=== PATIENT | female | born 1980 | race Caucasian/White ===

== ENCOUNTER 2020-04-05 17:36 | Emergency (ER) | payer SELFPAY ==
[2020-04-05 17:57] VITALS: TEMP 97.8
--- NOTE | 2020-04-05 18:12 | RAD ---
EXAM DESCRIPTION: Tibia/Fibula,Left CLINICAL HISTORY: prox tib pain after fall 2 days ago COMPARISON: None FINDINGS: Two x-ray views of the left tibia and fibula were submitted. There is no acute fracture or dislocation. Bone mineralization is within normal limits. There is no radiopaque foreign body material. IMPRESSION: No acute fracture or dislocation. Electronically signed by: John Crenshaw MD 04/05/2020 6:10 PM [facility]
--- NOTE | 2020-04-05 18:19 | ED.PDOC ---
History of Present Illness - General Chief Complaint: Lower Extremity Injury Stated Complaint: left leg swelling after fall Time Seen by Provider: 04/05/20 17:49 Source: patient Exam Limitations: no limitations - History of Present Illness Initial Comments: The patient is a 39-year-old female presented emergency room secondary to left lower leg pain. Apparently the patient hit her hurst on a trailer in the middle of the night 2 nights ago. She had a large hematoma over the proximal hurst that has since tracked down. As is expected with the tracking fluid she is having some discomfort in the areas to which the fluid is tracking to and some swelling. She appears to be neurovascularly intact. Range of motion and muscle strength are preserved. No evidence of gross deformity. No other significant injuries. She has a mild abrasion over the point of impact without any evidence of infection. Timing/Duration: other - 48 hours Severity: mild Improving Factors: immobilization Worsening Factors: movement Associated Symptoms: denies symptoms Allergies/Adverse Reactions: Allergies NO KNOWN ALLERGY Allergy (Verified 04/05/20 17:59) Review of Systems - Review of Systems Constitutional: States: no symptoms reported EENTM: States: no symptoms reported Respiratory: States: no symptoms reported Cardiology: States: no symptoms reported Gastrointestinal/Abdominal: States: no symptoms reported Genitourinary: States: no symptoms reported Musculoskeletal: States: see HPI Skin: States: see HPI Neurological: States: no symptoms reported Endocrine: States: no symptoms reported All other Systems: No Change from Baseline Past Medical History (General) - Activities of Daily Living Hospice Agency (if applicable):: None - Female History Patient : No Family Medical History - Family History Mother Family History: Unknown Physical Exam - Physical Exam General Appearance: Alert, No apparent distress Eye Exam: bilateral normal Ears, Nose, Throat: hearing grossly normal Respiratory: no respiratory distress, no accessory muscle use Cardiovascular/Chest: normal peripheral pulses, no edema Peripheral Pulses: dorsalis pedis,right: 2+, dorsalis pedis,left: 2+, posterior tibialis,right: 2+, posterior tibialis,left: 2+ Rectal Exam: deferred Extremity: normal range of motion, normal capillary refill, other - See history of present illness 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 Comments: Vital Signs - 24 hr 04/05/20 04/05/20 17:45 17:55 Temperature 97.8 F Pulse Rate [ 104 H 104 H pulse ox] Respiratory 20 20 Rate Blood Pressure 149/86 [Left Arm] O2 Sat by Pulse 98 Oximetry Progress - Progress Progress: 04/05/20 18:17 The patient is a 39-year-old female presenting secondary to pain in her left lower extremity after hitting the hurst on a trailer a few nights ago. The patient has a hematoma in the area that has tracked downward causing some discomfort. The patient does need to do range of motion exercises and apply heat to reduce discomfort. [id number] oral anti-inflammatories may help some however she will likely have some swelling and discomfort for the next 3 weeks or so. X-ray shows no evidence of any fracture or dislocation. Ambulate carefully. ER warnings are given. alex lovelace [id number] Departure - Departure Clinical Impression: Hematoma of lower extremity Qualifiers: Encounter type: initial encounter Laterality: left Qualified Code(s): S80.12XA - Contusion of left lower leg, initial encounter Disposition: Discharge to Home or Self Care Condition: Fair Departure Forms: ED Discharge - Pt. Copy, Patient Portal Self Enrollment Instructions: DI for Leg Pain, Contusion (DC) Diet: regular diet Activity: increase activity as tolerated Additional Instructions: The patient is a 69-year-old female presents emergency room with what appears to be a viral syndrome. The patient can take Motrin and Tylenol as needed to control any headache or low-grade fever or body aches. She does need to keep her self well-hydrated. For the nausea she will be written for Phenergan for as needed use and she needs to maintain a bland diet and again keep her self well-hydrated. She tested negative for strep throat and coronavirus here today. Keep routine follow-up with primary care doctor.
[2020-04-05 18:36] VITALS: BP 128/71; O2SAT 100
== END 2020-04-05 18:25 | disposition home or self-care (01) ==
LOC: ER 17:36
DX: S80.12XA Contusion of left lower leg, initial encounter (principal); W22.09XA Striking against other stationary object, initial encounter; Y92.9 Unspecified place or not applicable